=== PATIENT | male | born 1960 | race Hispanic/Latino ===

== ENCOUNTER 2021-01-07 11:37 | Inpatient (IN) | payer MEDICARE, OTHER ==
[~2021-01-07] VITALS: Ht 167.6 cm; Wt 63.0 kg
[2021-01-07] MEDS ORDERED: SODIUM CHLORIDE 0.9% 500ML 500 ML IV ONE (13:00)
[2021-01-07] MEDS: SODIUM CHLORIDE 0.9% 1000ML 1,000 ML IV SCH ×2 (13:20→20:20)
[2021-01-07 13:24] LABS: BASOPHILS % 0.3 % (0.0-1.0); EOSINOPHILS # (AUTO) 0.1 (0.0-0.4); HEMATOCRIT 39.4 % (38.2-49.6); HEMOGLOBIN 13.1 g/dL (14.0-18.0); LYMPHOCYTES # (AUTO) 1.2 (1.0-3.2); LYMPHOCYTES % 21.1 % (18.0-39.1); MEAN CORPUSCULAR HGB CONC 33.2 g/dL (31-35); MEAN CORPUSCULAR VOLUME 87.4 fL (81-99); MONOCYTES # (AUTO) 0.3 (0.2-0.8); MONOCYTES % 5.7 % (4.4-11.3); NEUTROPHILS # (AUTO) 4.2 (2.1-6.9); NEUTROPHILS % 71.6 % (38.7-80.0); PLATELET COUNT 289 x10e3/uL (140-360); RED BLOOD COUNT 4.51 x10e6/uL (4.3-5.7); RED CELL DISTRIBUTION WIDTH 12.9 % (11.7-14.4)
[2021-01-07] MEDS ORDERED: MEROPENEM 1 GM in SODIUM CHLORIDE 0.9% 100 ML IV ONE (13:30)
[2021-01-07 13:44] LABS: ALBUMIN/GLOBULIN RATIO 1.1 (0.8-2.0); ANION GAP 15.9 mmol/L (8-16); CALCIUM 9.3 mg/dL (8.4-10.2); CREATININE, SERUM 1.02 mg/dL (0.72-1.25); POTASSIUM 3.9 mmol/L (3.5-5.1)
[2021-01-07] MEDS ORDERED: ONDANSETRON HCL INJ 2MG/ML 2ML 2 MG/ML VIAL IV PRN (13:45)
[2021-01-07 14:57] LABS: CLARITY,URINE SL CLOUDY (CLEAR); COLOR,URINE YELLOW (YELLOW); LEUKOCYTE ESTERASE ,URINE SMALL (NEGATIVE); NITRITE,URINE POSITIVE (NEGATIVE)
[2021-01-07 14:58] LABS: KETONES,URINE TRACE (NEGATIVE); PROTEIN,URINE DIPSTICK NEGATIVE (NEGATIVE); URINE UROBILINOGEN 0.2 mg/dL (0.2 - 1)
[2021-01-07 15:03] LABS: BACTERIA,URINE MANY /HPF; RBC,URINE 0-5 /HPF (0-5)
[2021-01-07 18:16] VITALS: BP 107/85
[2021-01-07 18:25] VITALS: BP 131/86
[2021-01-07] MEDS ORDERED: PNEUMOCOCCAL VACCINE POLYVALENT 23 MCG/0.5 ML VIAL IM SCH (18:25)
[2021-01-07] MEDS ORDERED: INFLUENZA VIRUS VAC SPLIT INJ 0.5 ML SYR IM SCH (18:25)
[2021-01-07] MEDS ORDERED: CEFUROXIME250 MG PO (19:51)
[2021-01-07] MEDS ORDERED: ZOLPIDEM TARTRAT5 MG PO (19:51)
[2021-01-07] MEDS ORDERED: ACETAMINOPHEN-1 EAC4 PO (19:51)
[2021-01-07] MEDS ORDERED: FLOMAX0.4 MG PO (19:51)
[2021-01-07] MEDS ORDERED: CELEXA10 MG PO (19:51)
[2021-01-07] MEDS ORDERED: KETOROLAC TROME10 MG PO (19:51)
[2021-01-07 20:00] VITALS: BP 104/72
[2021-01-07 21:00] VITALS: BP 104/72
[2021-01-08] VITALS (7 sets, daily range): BP systolic 105–114; BP diastolic 56–77
[2021-01-08] MEDS ORDERED: ZOLPIDEM TARTRATE 5 MG TAB PO PRN (00:30)
[2021-01-08 04:56] LABS: BASOPHILS % 0.2 % (0.0-1.0); EOSINOPHILS # (AUTO) 0.2 (0.0-0.4); EOSINOPHILS % 3.7 % (0.0-6.0); HEMATOCRIT 39.2 % (38.2-49.6); HEMOGLOBIN 12.9 g/dL (14.0-18.0); LYMPHOCYTES % 34.3 % (18.0-39.1); MEAN CORPUSCULAR HEMOGLOBIN 29.1 pg (28-32); MEAN CORPUSCULAR HGB CONC 32.9 g/dL (31-35); MEAN CORPUSCULAR VOLUME 88.3 fL (81-99); MONOCYTES # (AUTO) 0.4 (0.2-0.8); MONOCYTES % 7.1 % (4.4-11.3); NEUTROPHILS # (AUTO) 3.2 (2.1-6.9); NEUTROPHILS % 54.5 % (38.7-80.0); PLATELET COUNT 299 x10e3/uL (140-360); RED BLOOD COUNT 4.44 x10e6/uL (4.3-5.7); RED CELL DISTRIBUTION WIDTH 12.9 % (11.7-14.4)
[2021-01-08 05:31] LABS: ALBUMIN 3.6 g/dL (3.5-5.0); ANION GAP 14.1 mmol/L (8-16); CALCIUM 9.3 mg/dL (8.4-10.2); CREATININE, SERUM 0.92 mg/dL (0.72-1.25); POTASSIUM 4.1 mmol/L (3.5-5.1)
[2021-01-08] MEDS: MEROPENEM 500 MG in SODIUM CHLORIDE 0.9% 50ML 50 ML IV SCH ×3 (06:00→21:37)
[2021-01-08] MEDS: SENNA-S TABLET PO SCH ×2 (09:10→17:16)
[2021-01-08] MEDS: CITALOPRAM HYDROBROMIDE 20 MG TAB PO SCH (09:10)
[2021-01-08] MEDS ORDERED: SODIUM CHLORIDE 0.9% 1000ML 1,000 ML ONE (15:34)
[2021-01-08] MEDS: TAMSULOSIN HCL 0.4 MG CAP PO SCH (17:16)
[2021-01-08] MEDS: SODIUM CHLORIDE 0.9% 1000ML 1,000 ML IV SCH (17:20)
[2021-01-08] MEDS: HYDROCODONE/APAP 10MG-325MG TAB PO PRN (21:41)
[2021-01-09] VITALS (9 sets, daily range): BP systolic 97–129; BP diastolic 54–78
[2021-01-09] MEDS: MEROPENEM 500 MG in SODIUM CHLORIDE 0.9% 50ML 50 ML IV SCH ×3 (05:06→22:06)
[2021-01-09] MEDS: SODIUM CHLORIDE 0.9% 1000ML 1,000 ML IV SCH ×2 (05:06→19:58)
[2021-01-09] MEDS: CITALOPRAM HYDROBROMIDE 20 MG TAB PO SCH (08:30)
[2021-01-09] MEDS: HYDROCODONE/APAP 10MG-325MG TAB PO PRN ×4 (08:30→22:12)
[2021-01-09] MEDS: SENNA-S TABLET PO SCH ×2 (08:30→14:45)
[2021-01-09] MEDS ORDERED: PNEUMOCOCCAL VACCINE POLYVALENT 23 MCG/0.5 ML VIAL IM ONE (13:00)
[2021-01-09] MEDS ORDERED: INFLUENZA VIRUS VAC SPLIT INJ 0.5 ML SYR IM ONE (13:00)
[2021-01-09] MEDS: TAMSULOSIN HCL 0.4 MG CAP PO SCH (14:57)
[2021-01-10] VITALS (8 sets, daily range): BP systolic 109–129; BP diastolic 67–72
[2021-01-10] MEDS: MEROPENEM 500 MG in SODIUM CHLORIDE 0.9% 50ML 50 ML IV SCH ×3 (05:24→21:14)
[2021-01-10] MEDS: HYDROCODONE/APAP 10MG-325MG TAB PO PRN ×3 (05:37→19:21)
[2021-01-10] MEDS: CITALOPRAM HYDROBROMIDE 20 MG TAB PO SCH (09:06)
[2021-01-10] MEDS: SENNA-S TABLET PO SCH ×2 (09:06→17:15)
[2021-01-10] MEDS: SODIUM CHLORIDE 0.9% 1000ML 1,000 ML IV SCH ×2 (09:15)
[2021-01-10] MEDS: TAMSULOSIN HCL 0.4 MG CAP PO SCH (17:15)
[2021-01-11] VITALS (7 sets, daily range): BP systolic 115–144; BP diastolic 62–83
[2021-01-11] MEDS: HYDROCODONE/APAP 10MG-325MG TAB PO PRN ×6 (04:41→22:35)
[2021-01-11] MEDS: MEROPENEM 500 MG in SODIUM CHLORIDE 0.9% 50ML 50 ML IV SCH ×3 (06:00→22:00)
[2021-01-11] MEDS: CITALOPRAM HYDROBROMIDE 20 MG TAB PO SCH (09:03)
[2021-01-11] MEDS: SENNA-S TABLET PO SCH ×2 (09:04→16:12)
[2021-01-11] MEDS: SODIUM CHLORIDE 0.9% 1000ML 1,000 ML IV SCH (13:15)
[2021-01-11] MEDS: TAMSULOSIN HCL 0.4 MG CAP PO SCH (16:12)
[2021-01-12 00:07] VITALS: BP 107/66
[2021-01-12] MEDS: HYDROCODONE/APAP 10MG-325MG TAB PO PRN ×3 (02:45→18:32)
[2021-01-12] MEDS: SODIUM CHLORIDE 0.9% 1000ML 1,000 ML IV SCH ×2 (02:48→14:35)
[2021-01-12 04:15] VITALS: BP 121/71
[2021-01-12] MEDS: MEROPENEM 500 MG in SODIUM CHLORIDE 0.9% 50ML 50 ML IV SCH ×2 (06:00→14:00)
[2021-01-12 07:53] VITALS: BP 129/73
[2021-01-12 09:00] VITALS: BP 129/73
[2021-01-12] MEDS: CITALOPRAM HYDROBROMIDE 20 MG TAB PO SCH (09:00)
[2021-01-12] MEDS: SENNA-S TABLET PO SCH ×2 (09:00→17:13)
[2021-01-12 11:44] VITALS: BP 130/70
[2021-01-12] MEDS ORDERED: ONDANSETRON HCL 4 MG ORAL DISINTEGRATING TAB PO PRN (15:30)
[2021-01-12 16:11] VITALS: BP 133/81
[2021-01-12] MEDS: TAMSULOSIN HCL 0.4 MG CAP PO SCH (17:12)
== END 2021-01-12 19:15 | disposition home health service (06) | DRG 699 ==
LOC: ER 12:45 → ERHOLD 13:39 → MED/SURG2 16:53
PROVIDERS: ADMIT Internal Medicine; ATTEND Internal Medicine
PROC: 02HV33Z Insertion of Infusion Device into Superior Vena Cava, Percutaneous Approach (ICD-10-PCS; principal; 2021-01-09)
DX: N99.89 Other postprocedural complications and disorders of genitourinary system (principal); N39.0 Urinary tract infection, site not specified; Z16.12 Extended spectrum beta lactamase (ESBL) resistance; N17.9 Acute kidney failure, unspecified; I10 Essential (primary) hypertension; B96.1 Klebsiella pneumoniae [K. pneumoniae] as the cause of diseases classified elsewhere; Z90.5 Acquired absence of kidney; Z93.3 Colostomy status; N40.1 Benign prostatic hyperplasia with lower urinary tract symptoms; R39.15 Urgency of urination; Z20.822 Contact with and (suspected) exposure to COVID-19; Z23 Encounter for immunization; I73.9 Peripheral vascular disease, unspecified; Y83.8 Other surgical procedures as the cause of abnormal reaction of the patient, or of later complication, without mention of misadventure at the time of the procedure
CPT/HCPCS: 36415; 36569; 71045; 80053; 81001; 85025; 87040; 87086; 87186; 90732; 99251; 99284; J2185; J7030; J7040; J7050; U0002

== ENCOUNTER 2021-01-28 21:35 | Emergency (ER) | payer MEDICARE, OTHER ==
[~2021-01-28] VITALS: Ht 167.6 cm; Wt 63.0 kg
[~2021-01-28 21:35] MED LIST: ACETAMINOPHEN-1 EAC4 PO; CEFUROXIME250 MG PO; CELEXA10 MG PO; FLOMAX0.4 MG PO; KETOROLAC TROME10 MG PO; ZOLPIDEM TARTRAT5 MG PO
[2021-01-28 22:16] LABS: BASOPHILS % 0.1 % (0.0-1.0); EOSINOPHILS # (AUTO) 0.2 (0.0-0.4); EOSINOPHILS % 3.4 % (0.0-6.0); HEMATOCRIT 39.5 % (38.2-49.6); HEMOGLOBIN 12.7 g/dL (14.0-18.0); LYMPHOCYTES # (AUTO) 2.8 (1.0-3.2); LYMPHOCYTES % 39.8 % (18.0-39.1); MEAN CORPUSCULAR HEMOGLOBIN 28.2 pg (28-32); MEAN CORPUSCULAR HGB CONC 32.2 g/dL (31-35); MEAN CORPUSCULAR VOLUME 87.8 fL (81-99); MONOCYTES # (AUTO) 0.7 (0.2-0.8); MONOCYTES % 10.2 % (4.4-11.3); NEUTROPHILS # (AUTO) 3.3 (2.1-6.9); NEUTROPHILS % 46.4 % (38.7-80.0); PLATELET COUNT 343 x10e3/uL (140-360); RED CELL DISTRIBUTION WIDTH 13.2 % (11.7-14.4)
[2021-01-28 22:18] LABS: CLARITY,URINE CLEAR (CLEAR); COLOR,URINE YELLOW (YELLOW); KETONES,URINE NEGATIVE (NEGATIVE); LEUKOCYTE ESTERASE ,URINE NEGATIVE (NEGATIVE); NITRITE,URINE NEGATIVE (NEGATIVE); PROTEIN,URINE DIPSTICK NEGATIVE (NEGATIVE); URINE UROBILINOGEN 0.2 mg/dL (0.2 - 1)
[2021-01-28 22:25] LABS: BACTERIA,URINE FEW /HPF; EPITHELIAL CELLS,URINE RARE /LPF; WBC,URINE (MAN) 0-5 /HPF (0-5)
[2021-01-28 22:38] LABS: ALBUMIN 3.9 g/dL (3.5-5.0); ALBUMIN/GLOBULIN RATIO 1.1 (0.8-2.0); ANION GAP 13.8 mmol/L (8-16); CALCIUM 9.4 mg/dL (8.4-10.2); CREATININE, SERUM 1.08 mg/dL (0.72-1.25); POTASSIUM 3.8 mmol/L (3.5-5.1)
== END 2021-01-28 23:55 | disposition home or self-care (01) ==
LOC: ER 21:54
DX: R30.0 Dysuria (principal); I10 Essential (primary) hypertension; Z87.19 Personal history of other diseases of the digestive system; Z82.49 Family history of ischemic heart disease and other diseases of the circulatory system; Z93.3 Colostomy status
CPT/HCPCS: 36415; 71045; 80053; 81001; 85025

== ENCOUNTER 2021-02-09 22:23 | Inpatient (IN) | payer MEDICARE, OTHER ==
[~2021-02-09] VITALS: Ht 167.6 cm; Wt 63.0 kg
[2021-02-09] MEDS ORDERED: CEFTRIAXONE 1 GM in SODIUM CHLORIDE 0.9% 50ML 50 ML IV ONE (23:30)
[2021-02-09 23:36] LABS: BASOPHILS % 0.1 % (0.0-1.0); EOSINOPHILS # (AUTO) 0.2 (0.0-0.4); EOSINOPHILS % 1.7 % (0.0-6.0); HEMATOCRIT 41.6 % (38.2-49.6); HEMOGLOBIN 13.6 g/dL (14.0-18.0); LYMPHOCYTES # (AUTO) 2.6 (1.0-3.2); LYMPHOCYTES % 27.1 % (18.0-39.1); MEAN CORPUSCULAR HEMOGLOBIN 28.4 pg (28-32); MEAN CORPUSCULAR HGB CONC 32.7 g/dL (31-35); MEAN CORPUSCULAR VOLUME 86.8 fL (81-99); MONOCYTES # (AUTO) 0.6 (0.2-0.8); MONOCYTES % 6.8 % (4.4-11.3); NEUTROPHILS # (AUTO) 6.1 (2.1-6.9); PLATELET COUNT 411 x10e3/uL (140-360); RED BLOOD COUNT 4.79 x10e6/uL (4.3-5.7); RED CELL DISTRIBUTION WIDTH 13.3 % (11.7-14.4)
[2021-02-09 23:51] LABS: CALCIUM 9.6 mg/dL (8.4-10.2); CREATININE, SERUM 1.09 mg/dL (0.72-1.25)
[2021-02-10] VITALS (10 sets, daily range): BP systolic 104–131; BP diastolic 68–84
[2021-02-10] MEDS ORDERED: ONDANSETRON HCL INJ 2MG/ML 2ML 2 MG/ML VIAL IV PRN ×2 (00:15→09:00)
[2021-02-10] MEDS: Morphine 4mg Syringe 4 MG/ML INJ IV PRN ×7 (00:35→22:10)
[2021-02-10] MEDS ORDERED: BELLADONNA/OPIUM 30 MG SUPP RC ONE (06:26)
[2021-02-10] MEDS ORDERED: IOPAMIDOL 300MG/ML 50ML INFUS..BTL IV ONE (06:26)
[2021-02-10 08:50] LABS: INR 0.91
[2021-02-10] MEDS ORDERED: ACETAMINOPHEN/CODEINE 300MG - 30MG TAB PO PRN (09:00)
[2021-02-10] MEDS ORDERED: ACETAMINOPHEN 325 MG TAB PO PRN (09:00)
[2021-02-10] MEDS ORDERED: HYDRALAZINE HCL 20 MG/ML VIAL IV PRN (09:15)
[2021-02-10 09:33] LABS: CLARITY,URINE CLOUDY (CLEAR); COLOR,URINE RED (YELLOW)
[2021-02-10 09:34] LABS: KETONES,URINE NEGATIVE (NEGATIVE); LEUKOCYTE ESTERASE ,URINE NEGATIVE (NEGATIVE); NITRITE,URINE NEGATIVE (NEGATIVE); PROTEIN,URINE DIPSTICK TRACE (NEGATIVE); URINE UROBILINOGEN 0.2 mg/dL (0.2 - 1)
[2021-02-10 09:53] LABS: RBC,URINE >50 /HPF (0-5); WBC,URINE (MAN) 0-5 /HPF (0-5)
[2021-02-10] MEDS: CITALOPRAM HYDROBROMIDE 20 MG TAB PO SCH (10:15)
[2021-02-10] MEDS: MEROPENEM 500 MG in SODIUM CHLORIDE 0.9% 50ML 50 ML IV SCH ×2 (11:37→17:55)
[2021-02-10] MEDS ORDERED: SODIUM CHLORIDE 0.9% 250ML 250 ML ONE ×2 (12:01→14:11)
[2021-02-10] MEDS ORDERED: ONDANSETRON HCL INJ 2MG/ML 2ML 2 MG/ML VIAL ONE (12:11)
[2021-02-10] MEDS ORDERED: LIDOCAINE HCL 2% LOCAL INJ 5 ML SDV VIAL INJ ONE (12:11)
[2021-02-10] MEDS ORDERED: DEXAMETHASONE SOD PHOS INJ 4 MG/ML SDV ONE (12:11)
[2021-02-10] MEDS ORDERED: PROPOFOL IV EMULSION 10 MG/ML 20 ML VIAL ONE (12:11)
[2021-02-10] MEDS ORDERED: MIDAZOLAM HCL 2 MG/2 ML VIAL ONE ×2 (12:15→14:26)
[2021-02-10] MEDS ORDERED: FENTANYL CITRATE/PF 100MCG/2 ML INJ ONE ×2 (12:15→14:26)
[2021-02-10] MEDS ORDERED: LIDOCAINE HCL 1% LOCAL INJ 20 ML VIAL ONE (14:11)
[2021-02-10] MEDS ORDERED: SODIUM CHLORIDE 0.9% 500ML 0 ML ONE (14:11)
[2021-02-10] MEDS: TAMSULOSIN HCL 0.4 MG CAP PO SCH (17:55)
[2021-02-10] MEDS: ZOLPIDEM TARTRATE 10 MG TAB PO SCH (21:12)
[2021-02-11] MEDS: MEROPENEM 500 MG in SODIUM CHLORIDE 0.9% 50ML 50 ML IV SCH ×3 (01:27→17:34)
[2021-02-11 03:48] VITALS: BP 112/77
[2021-02-11 05:13] LABS: BASOPHILS % 0.1 % (0.0-1.0); EOSINOPHILS % 0.1 % (0.0-6.0); HEMATOCRIT 36.7 % (38.2-49.6); LYMPHOCYTES # (AUTO) 2.3 (1.0-3.2); LYMPHOCYTES % 23.5 % (18.0-39.1); MEAN CORPUSCULAR HEMOGLOBIN 28.4 pg (28-32); MEAN CORPUSCULAR HGB CONC 32.7 g/dL (31-35); MONOCYTES # (AUTO) 0.7 (0.2-0.8); MONOCYTES % 6.6 % (4.4-11.3); NEUTROPHILS # (AUTO) 6.8 (2.1-6.9); NEUTROPHILS % 69.3 % (38.7-80.0); PLATELET COUNT 346 x10e3/uL (140-360); RED BLOOD COUNT 4.22 x10e6/uL (4.3-5.7); RED CELL DISTRIBUTION WIDTH 13.3 % (11.7-14.4)
[2021-02-11 05:50] LABS: ANION GAP 12.9 mmol/L (8-16); CALCIUM 8.9 mg/dL (8.4-10.2); CREATININE, SERUM 0.96 mg/dL (0.72-1.25); POTASSIUM 3.9 mmol/L (3.5-5.1)
[2021-02-11] MEDS: CITALOPRAM HYDROBROMIDE 20 MG TAB PO SCH (07:50)
[2021-02-11] MEDS: Morphine 4mg Syringe 4 MG/ML INJ IV PRN ×3 (07:50→21:19)
[2021-02-11 09:11] VITALS: BP 110/70
[2021-02-11] MEDS: HYDROCODONE/APAP 10MG-325MG TAB PO PRN ×3 (11:15→23:29)
[2021-02-11 11:52] VITALS: BP 122/77
[2021-02-11 16:56] VITALS: BP 117/77
[2021-02-11] MEDS: TAMSULOSIN HCL 0.4 MG CAP PO SCH (17:34)
[2021-02-11 20:00] VITALS: BP 112/72
[2021-02-11 20:06] VITALS: BP 112/72
[2021-02-11] MEDS: ZOLPIDEM TARTRATE 10 MG TAB PO SCH (20:21)
[2021-02-12] VITALS (7 sets, daily range): BP systolic 108–129; BP diastolic 67–81
[2021-02-12] MEDS: MEROPENEM 500 MG in SODIUM CHLORIDE 0.9% 50ML 50 ML IV SCH ×3 (02:01→17:38)
[2021-02-12] MEDS: HYDROCODONE/APAP 10MG-325MG TAB PO PRN ×4 (05:43→23:37)
[2021-02-12] MEDS: CITALOPRAM HYDROBROMIDE 20 MG TAB PO SCH (08:42)
[2021-02-12] MEDS: Morphine 4mg Syringe 4 MG/ML INJ IV PRN ×3 (09:10→20:20)
[2021-02-12] MEDS ORDERED: MAGNESIUM HYDROXIDE 30 ML UDC PO PRN (17:00)
[2021-02-12] MEDS: POLYETHYLENE GLYCOL 3350 17 GM PACK PO SCH (17:38)
[2021-02-12] MEDS: SENNA-S TABLET PO SCH (17:38)
[2021-02-12] MEDS: TAMSULOSIN HCL 0.4 MG CAP PO SCH (17:39)
[2021-02-12] MEDS ORDERED: SODIUM CHLORIDE 0.9% 50ML 50 ML ONE (20:00)
[2021-02-12] MEDS: ZOLPIDEM TARTRATE 10 MG TAB PO SCH (20:20)
[2021-02-13] VITALS (9 sets, daily range): BP systolic 93–147; BP diastolic 65–85
[2021-02-13] MEDS: MEROPENEM 500 MG in SODIUM CHLORIDE 0.9% 50ML 50 ML IV SCH ×3 (01:56→16:59)
[2021-02-13] MEDS: Morphine 4mg Syringe 4 MG/ML INJ IV PRN ×3 (04:08→17:33)
[2021-02-13] MEDS: HYDROCODONE/APAP 10MG-325MG TAB PO PRN ×3 (06:54→19:44)
[2021-02-13] MEDS: CITALOPRAM HYDROBROMIDE 20 MG TAB PO SCH (09:44)
[2021-02-13] MEDS: POLYETHYLENE GLYCOL 3350 17 GM PACK PO SCH ×2 (09:44→16:59)
[2021-02-13] MEDS: SENNA-S TABLET PO SCH ×2 (09:44→16:59)
[2021-02-13] MEDS: TAMSULOSIN HCL 0.4 MG CAP PO SCH (16:59)
[2021-02-13] MEDS: ZOLPIDEM TARTRATE 10 MG TAB PO SCH (20:12)
[2021-02-14] VITALS (9 sets, daily range): BP systolic 115–138; BP diastolic 65–91
[2021-02-14] MEDS: MEROPENEM 500 MG in SODIUM CHLORIDE 0.9% 50ML 50 ML IV SCH ×3 (02:05→17:18)
[2021-02-14] MEDS: HYDROCODONE/APAP 10MG-325MG TAB PO PRN ×4 (02:05→20:33)
[2021-02-14] MEDS: Morphine 4mg Syringe 4 MG/ML INJ IV PRN ×4 (04:05→23:23)
[2021-02-14] MEDS: CITALOPRAM HYDROBROMIDE 20 MG TAB PO SCH (08:15)
[2021-02-14] MEDS: SENNA-S TABLET PO SCH ×2 (08:15→16:30)
[2021-02-14] MEDS: POLYETHYLENE GLYCOL 3350 17 GM PACK PO SCH ×2 (08:20→16:30)
[2021-02-14] MEDS: TAMSULOSIN HCL 0.4 MG CAP PO SCH (16:30)
[2021-02-14] MEDS: ZOLPIDEM TARTRATE 10 MG TAB PO SCH (20:33)
[2021-02-15] MEDS: MEROPENEM 500 MG in SODIUM CHLORIDE 0.9% 50ML 50 ML IV SCH ×3 (02:29→18:00)
[2021-02-15] MEDS: HYDROCODONE/APAP 10MG-325MG TAB PO PRN ×3 (02:29→23:25)
[2021-02-15 05:15] VITALS: BP 136/86
[2021-02-15] MEDS: Morphine 4mg Syringe 4 MG/ML INJ IV PRN ×3 (05:41→20:54)
[2021-02-15 07:55] VITALS: BP 135/79
[2021-02-15] MEDS: CITALOPRAM HYDROBROMIDE 20 MG TAB PO SCH (08:53)
[2021-02-15] MEDS: POLYETHYLENE GLYCOL 3350 17 GM PACK PO SCH ×2 (08:53→17:00)
[2021-02-15] MEDS: SENNA-S TABLET PO SCH ×2 (08:53→17:00)
[2021-02-15 12:15] VITALS: BP 137/76
[2021-02-15 16:26] VITALS: BP 116/68
[2021-02-15] MEDS: TAMSULOSIN HCL 0.4 MG CAP PO SCH (17:00)
[2021-02-15 20:00] VITALS: BP 141/90
[2021-02-15] MEDS: ZOLPIDEM TARTRATE 10 MG TAB PO SCH (20:53)
[2021-02-15 21:03] VITALS: BP 141/90
[2021-02-16] VITALS: BP 122/71
[2021-02-16] MEDS: MEROPENEM 500 MG in SODIUM CHLORIDE 0.9% 50ML 50 ML IV SCH (02:21)
[2021-02-16] MEDS: Morphine 4mg Syringe 4 MG/ML INJ IV PRN (02:45)
[2021-02-16 04:00] VITALS: BP 132/82
[2021-02-16 07:33] LABS: BASOPHILS % 0.3 % (0.0-1.0); EOSINOPHILS # (AUTO) 0.2 (0.0-0.4); EOSINOPHILS % 2.2 % (0.0-6.0); HEMATOCRIT 38.6 % (38.2-49.6); HEMOGLOBIN 12.4 g/dL (14.0-18.0); LYMPHOCYTES # (AUTO) 2.2 (1.0-3.2); LYMPHOCYTES % 32.1 % (18.0-39.1); MEAN CORPUSCULAR HEMOGLOBIN 27.7 pg (28-32); MEAN CORPUSCULAR HGB CONC 32.1 g/dL (31-35); MEAN CORPUSCULAR VOLUME 86.2 fL (81-99); MONOCYTES # (AUTO) 0.6 (0.2-0.8); MONOCYTES % 9.3 % (4.4-11.3); NEUTROPHILS # (AUTO) 3.8 (2.1-6.9); NEUTROPHILS % 55.8 % (38.7-80.0); PLATELET COUNT 387 x10e3/uL (140-360); RED BLOOD COUNT 4.48 x10e6/uL (4.3-5.7); RED CELL DISTRIBUTION WIDTH 13.3 % (11.7-14.4)
[2021-02-16 08:00] VITALS: BP 132/82
[2021-02-16 08:01] LABS: ANION GAP 14.9 mmol/L (8-16); CALCIUM 9.4 mg/dL (8.4-10.2); CREATININE, SERUM 0.8 mg/dL (0.72-1.25); POTASSIUM 3.9 mmol/L (3.5-5.1)
[2021-02-16 08:33] VITALS: BP 127/84
[2021-02-16] MEDS: CITALOPRAM HYDROBROMIDE 20 MG TAB PO SCH (09:40)
[2021-02-16] MEDS: POLYETHYLENE GLYCOL 3350 17 GM PACK PO SCH (09:40)
[2021-02-16] MEDS: SENNA-S TABLET PO SCH (09:40)
[2021-03-13] MEDS ORDERED: AMLODIPINE BESYL5 MG PO (14:28)
== END 2021-02-16 10:35 | disposition home health service (06) | DRG 697 ==
LOC: ER 22:47 → ERHOLD 02-10 00:02 → MED/SURG2 02-10 03:25 → OBSVTOIN 02-12 11:18
PROVIDERS: ADMIT Internal Medicine; ATTEND Internal Medicine
PROC: 0T9B30Z Drainage of Bladder with Drainage Device, Percutaneous Approach (ICD-10-PCS; principal; 2021-02-10 06:30)
PROC: 0TJB8ZZ Inspection of Bladder, Via Natural or Artificial Opening Endoscopic (ICD-10-PCS; 2021-02-12)
DX: N35.919 Unspecified urethral stricture, male, unspecified site (principal); U07.1 COVID-19; J12.82 Pneumonia due to coronavirus disease 2019; N39.0 Urinary tract infection, site not specified; Z16.12 Extended spectrum beta lactamase (ESBL) resistance; Z90.5 Acquired absence of kidney; N40.0 Benign prostatic hyperplasia without lower urinary tract symptoms; Z74.09 Other reduced mobility; B96.20 Unspecified Escherichia coli [E. coli] as the cause of diseases classified elsewhere; S71.001A Unspecified open wound, right hip, initial encounter; Z93.3 Colostomy status; I10 Essential (primary) hypertension; Z89.621 Acquired absence of right hip joint
CPT/HCPCS: 36415; 51102; 71045; 73521; 74470; 76000; 76942; 80048; 81001; 85025; 85610; 87086; 93005; 94799; 99283; C1758; C1769; G0378; J0696; J1100; J2001; J2185; J2250; J2270; J2405; J3010; J7040; J7050; U0002

== ENCOUNTER 2021-02-22 21:12 | Emergency (ER) | payer MEDICARE, OTHER ==
[~2021-02-22] VITALS: Ht 320 cm; Wt 63.0 kg
[2021-02-22 23:11] LABS: CLARITY,URINE CLOUDY (CLEAR); COLOR,URINE YELLOW (YELLOW); KETONES,URINE 1+ (NEGATIVE); LEUKOCYTE ESTERASE ,URINE 1+ (NEGATIVE); NITRITE,URINE POSITIVE (NEGATIVE); PROTEIN,URINE DIPSTICK 1+ (NEGATIVE); URINE UROBILINOGEN 0.2 mg/dL (0.2 - 1)
[2021-02-22 23:15] LABS: BACTERIA,URINE MANY /HPF; EPITHELIAL CELLS,URINE FEW /LPF; RBC,URINE >50 /HPF (0-5); WBC,URINE (MAN) >50 /HPF (0-5)
[2021-02-22] MEDS ORDERED: CIPROFLOXACIN 500 MG TAB PO STA (23:33)
[2021-02-23] MEDS ORDERED: CIPRO500 MG PO (00:48)
[2021-02-23 03:41] VITALS: BP 127/84
== END 2021-02-23 01:13 | disposition home or self-care (01) ==
LOC: ER 22:00
DX: R30.0 Dysuria (principal); N39.0 Urinary tract infection, site not specified; I10 Essential (primary) hypertension; Z89.611 Acquired absence of right leg above knee
CPT/HCPCS: 74176; 81001; 87086; 87186; 99284

== ENCOUNTER 2021-02-25 00:25 | Inpatient (IN) | payer MEDICARE, OTHER ==
[~2021-02-25] VITALS: Ht 320 cm; Wt 63.0 kg
[~2021-02-25 00:25] MED LIST changes: +CIPRO500 MG PO
[2021-02-25] MEDS ORDERED: SODIUM CHLORIDE 0.9% 1000ML 1,000 ML IV STA (00:59)
[2021-02-25] MEDS ORDERED: CEFTRIAXONE 1 GM in SODIUM CHLORIDE 0.9% 50ML 50 ML IV STA (00:59)
[2021-02-25] MEDS ORDERED: KETOROLAC TROMETHAMINE 30 MG/ML VIAL IV STA (01:00)
[2021-02-25 01:08] LABS: BASOPHILS % 0.2 % (0.0-1.0); EOSINOPHILS # (AUTO) 0.4 (0.0-0.4); EOSINOPHILS % 5.2 % (0.0-6.0); HEMATOCRIT 41.1 % (38.2-49.6); HEMOGLOBIN 13.4 g/dL (14.0-18.0); LYMPHOCYTES # (AUTO) 1.7 (1.0-3.2); MEAN CORPUSCULAR HEMOGLOBIN 28.2 pg (28-32); MEAN CORPUSCULAR HGB CONC 32.6 g/dL (31-35); MEAN CORPUSCULAR VOLUME 86.3 fL (81-99); MONOCYTES # (AUTO) 0.9 (0.2-0.8); NEUTROPHILS % 62.2 % (38.7-80.0); PLATELET COUNT 306 x10e3/uL (140-360); RED BLOOD COUNT 4.76 x10e6/uL (4.3-5.7); RED CELL DISTRIBUTION WIDTH 13.5 % (11.7-14.4)
[2021-02-25] MEDS ORDERED: CEFTRIAXONE 1 GM VIAL ONE (01:11)
[2021-02-25] MEDS ORDERED: KETOROLAC TROMETHAMINE 30 MG/ML VIAL ONE (01:12)
[2021-02-25] MEDS ORDERED: SODIUM CHLORIDE 0.9% 1000ML 1,000 ML IV ONE (01:15)
[2021-02-25 01:19] LABS: ALBUMIN/GLOBULIN RATIO 1.1 (0.8-2.0); ANION GAP 14.1 mmol/L (8-16); CALCIUM 10.5 mg/dL (8.4-10.2); CREATININE, SERUM 1.79 mg/dL (0.72-1.25); POTASSIUM 4.1 mmol/L (3.5-5.1)
[2021-02-25 01:48] LABS: CLARITY,URINE CLOUDY (CLEAR); COLOR,URINE RED (YELLOW); KETONES,URINE TRACE (NEGATIVE); LEUKOCYTE ESTERASE ,URINE NEGATIVE (NEGATIVE); NITRITE,URINE NEGATIVE (NEGATIVE); PROTEIN,URINE DIPSTICK >=300 (NEGATIVE); RBC,URINE >50 /HPF (0-5); URINE UROBILINOGEN 0.2 mg/dL (0.2 - 1)
[2021-02-25 01:56] LABS: BACTERIA,URINE FEW /HPF; EPITHELIAL CELLS,URINE FEW /LPF
[2021-02-25] MEDS: SODIUM CHLORIDE 0.9% 1000ML 1,000 ML IV SCH ×3 (02:18→18:25)
[2021-02-25] MEDS: Morphine 4mg Syringe 4 MG/ML INJ IV PRN ×2 (02:18→08:22)
[2021-02-25] MEDS: ONDANSETRON HCL INJ 2MG/ML 2ML 2 MG/ML VIAL IV PRN ×2 (02:19→08:22)
[2021-02-25] MEDS ORDERED: CIPROFLOXACIN 400 MG/D5W 200ML 200 ML IV SCH (09:00)
[2021-02-25] MEDS ORDERED: DIPHENHYDRAMINE HCL 25 MG CAP PO PRN (11:30)
[2021-02-25] MEDS ORDERED: ALBUTEROL/IPRATROPIUM 3 ML NEB NEB PRN (11:30)
[2021-02-25] MEDS ORDERED: ONDANSETRON HCL INJ 2MG/ML 2ML 2 MG/ML VIAL IV PRN (11:30)
[2021-02-25] MEDS ORDERED: DOCUSATE SODIUM 100 MG CAP PO PRN (11:30)
[2021-02-25] MEDS ORDERED: DEXTROSE 50% SYRINGE 50 ML IV PRN (11:30)
[2021-02-25] MEDS ORDERED: SIMETHICONE 80 MG CHEW PO PRN (11:30)
[2021-02-25] MEDS ORDERED: ACETAMINOPHEN 325 MG TAB PO PRN (11:30)
[2021-02-25] MEDS ORDERED: LIDOCAINE 4% PATCH TP PRN (11:30)
[2021-02-25] MEDS ORDERED: MELATONIN 5 MG TABLET PO PRN (11:30)
[2021-02-25] MEDS ORDERED: HYDRALAZINE HCL 20 MG/ML VIAL IV PRN (11:30)
[2021-02-25] MEDS ORDERED: BENZONATATE 100 MG CAP PO PRN (11:30)
[2021-02-25] MEDS ORDERED: POTASSIUM CHLORIDE 20 MEQ TAB CR PO PRN (11:30)
[2021-02-25] MEDS ORDERED: TRAMADOL HCL 50 MG TAB PO PRN (11:30)
[2021-02-25] MEDS: MEROPENEM 500 MG in SODIUM CHLORIDE 0.9% 50ML 50 ML IV SCH ×3 (13:10→23:54)
[2021-02-25] MEDS ORDERED: CEFEPIME 1 GM in SODIUM CHLORIDE 0.9% 50ML 50 ML IV SCH (14:00)
[2021-02-25] MEDS: HYDROCODONE/APAP 5MG-325MG TAB PO PRN ×2 (16:14→22:14)
[2021-02-25] MEDS ORDERED: ENOXAPARIN SOD INJ 40 MG/0.4 ML SYR SC SCH (17:00)
[2021-02-25 21:00] VITALS: BP 126/77
[2021-02-25 22:42] VITALS: BP 126/77
[2021-02-26] VITALS (9 sets, daily range): BP systolic 96–142; BP diastolic 67–80
[2021-02-26] MEDS: HYDROCODONE/APAP 5MG-325MG TAB PO PRN ×4 (04:25→22:47)
[2021-02-26 05:00] LABS: BASOPHILS % 0.2 % (0.0-1.0); EOSINOPHILS # (AUTO) 0.5 (0.0-0.4); EOSINOPHILS % 9.5 % (0.0-6.0); HEMATOCRIT 37.3 % (38.2-49.6); HEMOGLOBIN 11.9 g/dL (14.0-18.0); LYMPHOCYTES # (AUTO) 2.2 (1.0-3.2); LYMPHOCYTES % 39.8 % (18.0-39.1); MEAN CORPUSCULAR HEMOGLOBIN 27.9 pg (28-32); MEAN CORPUSCULAR HGB CONC 31.9 g/dL (31-35); MEAN CORPUSCULAR VOLUME 87.6 fL (81-99); MONOCYTES # (AUTO) 0.6 (0.2-0.8); NEUTROPHILS # (AUTO) 2.2 (2.1-6.9); NEUTROPHILS % 39.1 % (38.7-80.0); PLATELET COUNT 279 x10e3/uL (140-360); RED BLOOD COUNT 4.26 x10e6/uL (4.3-5.7); RED CELL DISTRIBUTION WIDTH 13.5 % (11.7-14.4)
[2021-02-26] MEDS: MEROPENEM 500 MG in SODIUM CHLORIDE 0.9% 50ML 50 ML IV SCH ×3 (05:34→16:45)
[2021-02-26 05:42] LABS: ALBUMIN 2.9 g/dL (3.5-5.0); ALBUMIN/GLOBULIN RATIO 0.9 (0.8-2.0); CALCIUM 9.1 mg/dL (8.4-10.2); CREATININE, SERUM 0.89 mg/dL (0.72-1.25)
[2021-02-26] MEDS: PANTOPRAZOLE SOD 40 MG TABEC PO SCH (07:30)
[2021-02-26] MEDS ORDERED: ONDANSETRON HCL 4 MG ORAL DISINTEGRATING TAB PO PRN (07:45)
[2021-02-26] MEDS: TAMSULOSIN HCL 0.4 MG CAP PO SCH (09:00)
[2021-02-26] MEDS: CITALOPRAM HYDROBROMIDE 20 MG TAB PO SCH (09:00)
[2021-02-26] MEDS: SODIUM CHLORIDE 0.9% 1000ML 1,000 ML IV SCH ×2 (09:49→18:15)
[2021-02-26] MEDS: Morphine 2mg Syringe 2 MG/ML SYR IV PRN (20:53)
[2021-02-27] MEDS: MEROPENEM 500 MG in SODIUM CHLORIDE 0.9% 50ML 50 ML IV SCH ×3 (00:49→12:04)
[2021-02-27 01:43] VITALS: BP 121/73
[2021-02-27] MEDS: SODIUM CHLORIDE 0.9% 1000ML 1,000 ML IV SCH (03:50)
[2021-02-27] MEDS: Morphine 2mg Syringe 2 MG/ML SYR IV PRN ×2 (03:51→09:25)
[2021-02-27 05:02] VITALS: BP 125/63
[2021-02-27 05:06] LABS: BASOPHILS % 0.3 % (0.0-1.0); EOSINOPHILS # (AUTO) 0.4 (0.0-0.4); EOSINOPHILS % 6.3 % (0.0-6.0); HEMATOCRIT 36.7 % (38.2-49.6); LYMPHOCYTES # (AUTO) 1.7 (1.0-3.2); LYMPHOCYTES % 26.8 % (18.0-39.1); MEAN CORPUSCULAR HEMOGLOBIN 28.3 pg (28-32); MEAN CORPUSCULAR HGB CONC 32.7 g/dL (31-35); MEAN CORPUSCULAR VOLUME 86.6 fL (81-99); MONOCYTES # (AUTO) 0.5 (0.2-0.8); MONOCYTES % 8.6 % (4.4-11.3); NEUTROPHILS # (AUTO) 3.6 (2.1-6.9); NEUTROPHILS % 57.8 % (38.7-80.0); PLATELET COUNT 269 x10e3/uL (140-360); RED BLOOD COUNT 4.24 x10e6/uL (4.3-5.7); RED CELL DISTRIBUTION WIDTH 13.2 % (11.7-14.4)
[2021-02-27 05:43] LABS: ANION GAP 10.8 mmol/L (8-16); CALCIUM 9.1 mg/dL (8.4-10.2); CREATININE, SERUM 0.85 mg/dL (0.72-1.25); POTASSIUM 3.8 mmol/L (3.5-5.1)
[2021-02-27 08:24] VITALS: BP 123/79
[2021-02-27] MEDS: TAMSULOSIN HCL 0.4 MG CAP PO SCH (08:51)
[2021-02-27] MEDS: CITALOPRAM HYDROBROMIDE 20 MG TAB PO SCH (08:51)
[2021-02-27] MEDS: PANTOPRAZOLE SOD 40 MG TABEC PO SCH (08:51)
[2021-02-27 09:16] VITALS: BP 123/79
[2021-02-27] MEDS: HYDROCODONE/APAP 5MG-325MG TAB PO PRN (12:04)
[2021-02-27 12:12] VITALS: BP 137/83
[2021-02-27 16:08] VITALS: BP 141/85
== END 2021-02-27 18:04 | disposition home or self-care (01) | DRG 699 ==
LOC: ER 00:37 → ERHOLD 02:04 → MED/SURG2 18:10
PROVIDERS: ADMIT Internal Medicine; ATTEND Internal Medicine
DX: N32.89 Other specified disorders of bladder (principal); N17.9 Acute kidney failure, unspecified; I10 Essential (primary) hypertension; N40.0 Benign prostatic hyperplasia without lower urinary tract symptoms; F32.A Depression, unspecified; N35.819 Other urethral stricture, male, unspecified site; Z20.822 Contact with and (suspected) exposure to COVID-19; Z93.59 Other cystostomy status; Z89.611 Acquired absence of right leg above knee; Z93.3 Colostomy status; Z87.440 Personal history of urinary (tract) infections; Z90.5 Acquired absence of kidney; N18.9 Chronic kidney disease, unspecified
CPT/HCPCS: 36415; 80048; 80053; 81001; 83036; 83735; 85025; 87086; 94799; 99284; J0696; J1885; J2185; J2270; J2405; J7030; U0002

== ENCOUNTER 2021-03-10 21:25 | Emergency (ER) | payer MEDICARE, OTHER ==
[~2021-03-10] VITALS: Ht 320 cm; Wt 63.0 kg
[2021-03-13] MEDS ORDERED: AMLODIPINE BESYL5 MG PO (14:28)
== END 2021-03-10 21:58 | disposition home or self-care (01) ==
LOC: ER 21:42
DX: Z00.00 Encounter for general adult medical examination without abnormal findings (principal); Z03.89 Encounter for observation for other suspected diseases and conditions ruled out
CPT/HCPCS: 99282

== ENCOUNTER → 2021-03-20 | Day surgery (SDC) | payer MEDICARE, OTHER ==
[~2021-03-20] MED LIST changes: +ACETAMINOPHEN/CODEINE 300MG - 30MG TAB ONE; +AMLODIPINE BESYL5 MG PO; +BELLADONNA/OPIUM 30 MG SUPP RC ONE; +DEXAMETHASONE SOD PHOS INJ 4 MG/ML SDV ONE; +EPHEDRINE SULFATE INJ 50 MG/ML VIAL ONE; +FENTANYL CITRATE/PF 100MCG/2 ML INJ ONE; +IOPAMIDOL 300MG/ML 50ML INFUS..BTL IV ONE; +LIDOCAINE HCL 2% LOCAL INJ 5 ML SDV VIAL INJ ONE; +MIDAZOLAM HCL 2 MG/2 ML VIAL ONE; +ONDANSETRON HCL INJ 2MG/ML 2ML 2 MG/ML VIAL ONE; +PHENYLEPHRINE HCL 1% 10 MG/ML VIAL ONE; +PIPERACILLIN/TAZOBACTAM 3.375 GM VIAL ONE; +POVIDONE IODINE 0.05% 0.05 % ML PO ONE; +PROPOFOL IV EMULSION 10 MG/ML 20 ML VIAL ONE; +SEVOFLURANE INHAL SOLN 250 ML PEN BTL ONE; +SODIUM CHLORIDE 0.9% 50ML 50 ML ONE
[2021-03-20 09:30] VITALS: BP 144/87
== END | disposition home or self-care (01) ==
LOC: OR 05:59
PROVIDERS: ATTEND Urology
DX: N35.912 Unspecified bulbous urethral stricture, male (principal); N40.0 Benign prostatic hyperplasia without lower urinary tract symptoms; N39.0 Urinary tract infection, site not specified; N32.89 Other specified disorders of bladder; N32.3 Diverticulum of bladder; Z90.5 Acquired absence of kidney; I10 Essential (primary) hypertension; Z93.3 Colostomy status; Z01.812 Encounter for preprocedural laboratory examination; Z01.818 Encounter for other preprocedural examination; Z20.822 Contact with and (suspected) exposure to COVID-19; Z79.899 Other long term (current) drug therapy; Z86.16 Personal history of COVID-19
CPT/HCPCS: 51705; 52005; 52276; 71046; 74420; C1758; J1100; J2001; J2250; J2370; J2405; J2543; J2704; J3010; Q9967; U0002

== ENCOUNTER 2021-04-23 16:51 | Emergency (ER) | payer MEDICARE, OTHER ==
[~2021-04-23] VITALS: Ht 167.6 cm; Wt 63.0 kg
[~2021-04-23 16:51] MED LIST changes: -ACETAMINOPHEN/CODEINE 300MG - 30MG TAB ONE; -BELLADONNA/OPIUM 30 MG SUPP RC ONE; -DEXAMETHASONE SOD PHOS INJ 4 MG/ML SDV ONE; -EPHEDRINE SULFATE INJ 50 MG/ML VIAL ONE; -FENTANYL CITRATE/PF 100MCG/2 ML INJ ONE; -IOPAMIDOL 300MG/ML 50ML INFUS..BTL IV ONE; -LIDOCAINE HCL 2% LOCAL INJ 5 ML SDV VIAL INJ ONE; -MIDAZOLAM HCL 2 MG/2 ML VIAL ONE; -ONDANSETRON HCL INJ 2MG/ML 2ML 2 MG/ML VIAL ONE; -PHENYLEPHRINE HCL 1% 10 MG/ML VIAL ONE; -PIPERACILLIN/TAZOBACTAM 3.375 GM VIAL ONE; -POVIDONE IODINE 0.05% 0.05 % ML PO ONE; -PROPOFOL IV EMULSION 10 MG/ML 20 ML VIAL ONE; -SEVOFLURANE INHAL SOLN 250 ML PEN BTL ONE; -SODIUM CHLORIDE 0.9% 50ML 50 ML ONE
[2021-04-23 18:56] LABS: CLARITY,URINE SL CLOUDY (CLEAR); COLOR,URINE YELLOW (YELLOW); KETONES,URINE NEGATIVE (NEGATIVE); LEUKOCYTE ESTERASE ,URINE MODERATE (NEGATIVE); NITRITE,URINE POSITIVE (NEGATIVE); PROTEIN,URINE DIPSTICK 1+ (NEGATIVE); URINE UROBILINOGEN 0.2 mg/dL (0.2 - 1)
[2021-04-23] MEDS ORDERED: CEFUROXIME500 MG PO (19:01)
[2021-04-23 19:03] LABS: BACTERIA,URINE MODERATE /HPF; WBC,URINE (MAN) 21-50 /HPF (0-5)
[2021-04-29] MEDS ORDERED: ONDANSETRON ODT4 MG PO (08:14)
== END 2021-04-23 19:36 | disposition home or self-care (01) ==
LOC: ER 17:10
DX: R30.0 Dysuria (principal); N39.0 Urinary tract infection, site not specified; I10 Essential (primary) hypertension; Z89.611 Acquired absence of right leg above knee; Z93.3 Colostomy status
CPT/HCPCS: 81001; 87086; 87186; 99283

== ENCOUNTER 2021-04-27 11:21 | Inpatient (IN) | payer MEDICARE, OTHER ==
[~2021-04-27] VITALS: Ht 167.6 cm; Wt 59.0 kg
[~2021-04-27 11:21] MED LIST changes: +CEFUROXIME500 MG PO
[2021-04-27] MEDS ORDERED: SODIUM CHLORIDE 0.9% 1000ML 1,000 ML IV STA (11:55)
[2021-04-27] MEDS ORDERED: MEROPENEM 1 GM in SODIUM CHLORIDE 0.9% 100 ML IV ONE (12:00)
[2021-04-27] MEDS ORDERED: ONDANSETRON HCL INJ 2MG/ML 2ML 2 MG/ML VIAL IV PRN (12:00)
[2021-04-27 12:08] LABS: BASOPHILS % 0.2 % (0.0-1.0); EOSINOPHILS # (AUTO) 0.2 (0.0-0.4); EOSINOPHILS % 3.6 % (0.0-6.0); HEMATOCRIT 40.7 % (38.2-49.6); HEMOGLOBIN 13.5 g/dL (14.0-18.0); LYMPHOCYTES # (AUTO) 1.3 (1.0-3.2); LYMPHOCYTES % 29.8 % (18.0-39.1); MEAN CORPUSCULAR HEMOGLOBIN 28.7 pg (28-32); MEAN CORPUSCULAR HGB CONC 33.2 g/dL (31-35); MEAN CORPUSCULAR VOLUME 86.4 fL (81-99); MONOCYTES # (AUTO) 0.5 (0.2-0.8); MONOCYTES % 11.2 % (4.4-11.3); NEUTROPHILS # (AUTO) 2.3 (2.1-6.9); PLATELET COUNT 282 x10e3/uL (140-360); RED BLOOD COUNT 4.71 x10e6/uL (4.3-5.7); RED CELL DISTRIBUTION WIDTH 13.5 % (11.7-14.4)
[2021-04-27] MEDS ORDERED: NON-FORMULARY MEDICATION (Acetaminophen With Codeine (Acetaminophen-Cod #4 Tablet) 1 TAB) PO PRN (12:15)
[2021-04-27] MEDS ORDERED: ACETAMINOPHEN 325 MG TAB PO PRN (12:15)
[2021-04-27] MEDS ORDERED: DOCUSATE SODIUM 100 MG CAP PO PRN (12:15)
[2021-04-27 12:32] LABS: ALBUMIN 3.8 g/dL (3.5-5.0); ANION GAP 10.9 mmol/L (8-16); CALCIUM 9.6 mg/dL (8.4-10.2); CREATININE, SERUM 1.01 mg/dL (0.72-1.25); POTASSIUM 3.9 mmol/L (3.5-5.1)
[2021-04-27] MEDS: SODIUM CHLORIDE 0.9% 1000ML 1,000 ML IV SCH ×2 (13:15→15:00)
[2021-04-27 14:40] VITALS: BP 140/86
[2021-04-27 14:54] VITALS: BP 140/86
[2021-04-27] MEDS: ACETAMINOPHEN/CODEINE 300MG - 30MG TAB PO PRN (18:40)
[2021-04-27 19:36] VITALS: BP 133/82
[2021-04-27 19:54] VITALS: BP 133/82
[2021-04-28 00:21] VITALS: BP 140/89
[2021-04-28] MEDS: ACETAMINOPHEN/CODEINE 300MG - 30MG TAB PO PRN (00:26)
[2021-04-28 05:03] LABS: BASOPHILS % 0.3 % (0.0-1.0); EOSINOPHILS # (AUTO) 0.3 (0.0-0.4); EOSINOPHILS % 5.1 % (0.0-6.0); HEMATOCRIT 37.4 % (38.2-49.6); HEMOGLOBIN 12.2 g/dL (14.0-18.0); LYMPHOCYTES # (AUTO) 2.6 (1.0-3.2); LYMPHOCYTES % 39.6 % (18.0-39.1); MEAN CORPUSCULAR HEMOGLOBIN 28.3 pg (28-32); MEAN CORPUSCULAR HGB CONC 32.6 g/dL (31-35); MEAN CORPUSCULAR VOLUME 86.8 fL (81-99); MONOCYTES # (AUTO) 0.5 (0.2-0.8); MONOCYTES % 7.2 % (4.4-11.3); NEUTROPHILS # (AUTO) 3.2 (2.1-6.9); NEUTROPHILS % 47.6 % (38.7-80.0); PLATELET COUNT 253 x10e3/uL (140-360); RED BLOOD COUNT 4.31 x10e6/uL (4.3-5.7); RED CELL DISTRIBUTION WIDTH 13.6 % (11.7-14.4)
[2021-04-28 05:20] VITALS: BP 139/91
[2021-04-28 05:29] LABS: ALBUMIN 3.2 g/dL (3.5-5.0); ANION GAP 10.3 mmol/L (8-16); CALCIUM 9.2 mg/dL (8.4-10.2); CREATININE, SERUM 0.85 mg/dL (0.72-1.25); POTASSIUM 4.3 mmol/L (3.5-5.1)
[2021-04-28 08:53] VITALS: BP 139/91
[2021-04-28] MEDS ORDERED: MEROPENEM 500 MG in SODIUM CHLORIDE 0.9% 50ML 50 ML IV SCH ×2 (09:00→14:00)
[2021-04-28] MEDS ORDERED: ONDANSETRON HCL 4 MG ORAL DISINTEGRATING TAB PO PRN (09:30)
[2021-04-28] MEDS: CITALOPRAM HYDROBROMIDE 20 MG TAB PO SCH ×2 (09:35→09:37)
[2021-04-28] MEDS: AMLODIPINE BESYLATE 5 MG TAB PO SCH ×2 (09:35→09:37)
[2021-04-28] MEDS: TAMSULOSIN HCL 0.4 MG CAP PO SCH ×2 (09:35→09:37)
[2021-04-28] MEDS: Morphine 4mg Syringe 4 MG/ML INJ IV PRN ×3 (12:05→20:37)
[2021-04-28] MEDS: MEROPENEM 500 MG in SODIUM CHLORIDE 0.9% 50ML 50 ML IV SCH (18:05)
[2021-04-28 19:37] VITALS: BP 125/77
[2021-04-28 19:55] VITALS: BP 125/77
[2021-04-28 23:57] VITALS: BP 139/79
[2021-04-29] VITALS (8 sets, daily range): BP systolic 122–140; BP diastolic 72–95
[2021-04-29] MEDS: MEROPENEM 500 MG in SODIUM CHLORIDE 0.9% 50ML 50 ML IV SCH ×3 (01:09→17:05)
[2021-04-29] MEDS: Morphine 4mg Syringe 4 MG/ML INJ IV PRN ×4 (05:36→21:05)
[2021-04-29] MEDS ORDERED: ONDANSETRON ODT4 MG PO (08:14)
[2021-04-29 09:15] LABS: ANION GAP 9.9 mmol/L (8-16); CALCIUM 9.4 mg/dL (8.4-10.2); CREATININE, SERUM 0.85 mg/dL (0.72-1.25); POTASSIUM 3.9 mmol/L (3.5-5.1)
[2021-04-30 00:51] VITALS: BP 115/69
[2021-04-30] MEDS: Morphine 4mg Syringe 4 MG/ML INJ IV PRN ×3 (01:25→11:47)
[2021-04-30] MEDS: MEROPENEM 500 MG in SODIUM CHLORIDE 0.9% 50ML 50 ML IV SCH ×2 (01:39→09:07)
[2021-04-30 05:32] VITALS: BP 133/80
[2021-04-30 08:00] VITALS: BP 133/80
[2021-04-30] MEDS: AMLODIPINE BESYLATE 5 MG TAB PO SCH (09:07)
[2021-04-30] MEDS: CITALOPRAM HYDROBROMIDE 20 MG TAB PO SCH (09:07)
[2021-04-30] MEDS: TAMSULOSIN HCL 0.4 MG CAP PO SCH (09:07)
[2021-04-30 09:21] VITALS: BP 107/85
[2021-04-30 12:25] VITALS: BP 109/75
== END 2021-04-30 15:55 | disposition home or self-care (01) | DRG 699 ==
LOC: ER 11:41 → ERHOLD 11:58 → MED/SURG2 14:59
PROVIDERS: ADMIT Internal Medicine; ATTEND Internal Medicine
PROC: 02HV33Z Insertion of Infusion Device into Superior Vena Cava, Percutaneous Approach (ICD-10-PCS; principal; 2021-04-29)
DX: T83.510A Infection and inflammatory reaction due to cystostomy catheter, initial encounter (principal); N30.00 Acute cystitis without hematuria; Z16.12 Extended spectrum beta lactamase (ESBL) resistance; Q60.0 Renal agenesis, unilateral; B96.1 Klebsiella pneumoniae [K. pneumoniae] as the cause of diseases classified elsewhere; N35.919 Unspecified urethral stricture, male, unspecified site; N40.0 Benign prostatic hyperplasia without lower urinary tract symptoms; I10 Essential (primary) hypertension; R26.9 Unspecified abnormalities of gait and mobility; Z93.50 Unspecified cystostomy status; Z93.3 Colostomy status; Z89.621 Acquired absence of right hip joint; D64.9 Anemia, unspecified; K42.9 Umbilical hernia without obstruction or gangrene; Z20.822 Contact with and (suspected) exposure to COVID-19
CPT/HCPCS: 36415; 36569; 71045; 80048; 80053; 85025; 87040; 99251; 99284; J2185; J2270; J7030; J7050; U0002